=== PATIENT | male | born 1985 | race Two or more races ===

== ENCOUNTER 2022-09-05 17:02 | Emergency (ER) | payer OTHER ==
[~2022-09-05] VITALS: Ht 167.6 cm; Wt 65.8 kg
[2022-09-05] MEDS ORDERED: CEPH500T PO (18:07)
[2022-09-05] MEDS ORDERED: SULF1TAB47 PO (18:07)
[2022-09-05] MEDS ORDERED: SULFAMETH/TRIMETH 800/160 MG 1 UDTAB TABLET ONE (18:13)
--- NOTE | 2022-09-05 18:19 | NUR ---
Patient discharged to [facility][id number] in stable condition. Written and verbal after care instructions given. Patient verbalizes understanding of instruction.
[2022-09-05 18:21] VITALS: BP 148/62
[2022-09-05] MEDS ORDERED: SULFAMETH/TRIMETH 800/160 MG 1 UDTAB TABLET PO ONE (18:30)
== END 2022-09-05 18:26 ==
LOC: ER 17:05
DX: L03.114 Cellulitis of left upper limb (principal); F17.200 Nicotine dependence, unspecified, uncomplicated